=== PATIENT | female | born 1975 | race Caucasian/White ===

== ENCOUNTER 2016-10-02 15:29 | Inpatient (IN) | payer MEDICARE, MEDICAID ==
[~2016-10-02] VITALS: Ht 162.6 cm; Wt 75.3 kg
--- NOTE | 2016-10-02 18:06 | NUR ---
Arrived on Unit Patient arrived on floor from [facility] via BLS in stable condition. VSS. IV site in place. Reported 6/10 flank pain. Denies nausea at this time. MD notified patient arrived. Admit not completed this shift, oncoming shift aware admit not complete. Patient up independent in room. Sister at bedside. Call light and tray table within reach. Will continue to monitor patient hourly
[2016-10-02 18:14] VITALS: BP 155/84; PULSE 77; RESP 18; O2SAT 99
[2016-10-02] MEDS ORDERED: HYDROcodone-APAP 5-325 mg Tablet PO PRN (18:20)
[2016-10-02 18:53] LABS: BASOPHILS % (AUTO) 0.2 % (0-3); EOSINOPHILS % (AUTO) 1.7 % (0-5); MONOCYTES % (AUTO) 9.8 % (4-12); Mean Corpuscular Volume 89.4 fL (81-100); NEUTROPHILS % (AUTO) 62.1 % (40-74); Platelet Count 161 bil/L (150-400)
[2016-10-02] MEDS: 0.9% Sodium Chloride 1,000 ML IV SCH (19:55)
--- NOTE | 2016-10-02 20:09 | PCM.HPMED ---
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 UA was negative for UTI, CT showed left ureteral stone was 6 mm in the distal ureter with hydronephrosis. Patient was empirically treated with antibiotics Levaquin 500iv qd based on white cells count 19,000, despite urine culture remained negative for 24 hours. Patient was given Flomax, unable to pass the stone, remained symptomatic. Therefore, was reached, decided to bring patient to [facility] for further intervention. Pt had lunch, but kept in NPO afterwards for possible intervention tonight. Pt remained HD stable , afebrile per at [place] According d/c summary from [place], pt was on telemetry, didn't have any episode of SVT. BP was well controlled. initial CMP 09/30 showed bunc/r 17/1.4 to 14/1.1(today), procalcitonin<0.05, wbc19 to 11(today) On arrival to [facility], VS stable [id number], HR77, afebrile, 99% on RA, pt was unable to lay down on the bed due to pain, was sitting up on the chair, c/o mild nausea , pt had vomiting four times today, Last time pt ate was lunch. As per Urologist, , he will review the images and schedule for possible intervention tomorrow morning. Review of Systems: Pertinent positives as noted in history of present illness. All other systems were reviewed and are negative Allergies Coded Allergies: Penicillins (Verified Allergy, Severe, 10/02/16) acetaminophen (Verified Allergy, Intermediate, 10/02/16) oxycodone (Verified Allergy, Intermediate, 10/02/16) Home Medications none PMH As describe above Surgical History 2 open heart surgery 3 C-sections no complications from surgery or anesthesia Family History No CAD Social History Hx Alcohol Use: Yes (occasionally) Hx Substance Use: No Hx Tobacco Use: Yes (4 cigarettes for 8yrs) Exam Exam NAD, comfortably laying down on the bed no JVD, MMM, no LAD RRR, nl s1, s2 no mrg CTAB, no w,c S,ND,NT,normoactive BS+, CVAT+ on Left flank warm, no edema, pulses 2/2 Lab and Diagnostics X-Rays, CTs and MRIs CT abd/pelvis w/o contrast 09/30 1.severe left hydronephrosis and perinephric inflammation secondary to a single or two obstructing distal ureteral calculi 2. Small nonobstructing intrarenal calculi bilaterally, and a large 17mm nonobstructing right lower pole major man calicification 3. Cholethiasis 4.Mild cardiomegaly 5.Situs inversus 6. Findings called to ED Assessment & Plan 40yo F w/ history of situs inversus , hx of SVT, HTN initially presented to [facility] 2 days ago with severe left-sided flank pain with nausea and vomiting. acute, active lt flank pain, n,v, POA, CVAT+ on exam, CT from [place] showed Small nonobstructing intrarenal calculi bilaterally, and a large 17mm nonobstructing right lower pole major man calicification -appreciate input, would likely needs intervention given size of stones, persistent sx -keep NPO after MN, -will repeat UA, UCX -zofran for n/v -dilaudid for pain(pt tolerated well at [place]) -would continue Rocephin given concern for pyelonephritis for now, likely to stop tomorrow if pt remains stable, will trends fever curve, procalcitonin PAMELA, postobstructive, already resolved, cr peaked at 1.4 at [place], 0.9 today -avoid renal toxin, i/o strict, chronic, stable history of situs inversus, hx of SVT, will get baseline EKG HTN, continue home meds dispo:Patient will be admitted with inpatient status with expectation of inpatient therapy for more than 2 midnights diet:NPO for now, resume diet after possible procedure today dvt ppx:HSQ Full code Time spent 65 minutes Chi Gerber MD Oct 02, 2016 15:38
[2016-10-02] MEDS ORDERED: SERT100T PO (20:38)
[2016-10-02] MEDS ORDERED: ATEN100T PO (20:38)
[2016-10-02] MEDS: HYDROmorphone 1 mg/mL Inj IVPUSH PRN (21:06)
[2016-10-02] MEDS: Ondansetron 2 mg/mL 2 mL Inj IVPUSH PRN (22:20)
[2016-10-02] MEDS: Famotidine Inj 20 MG in IV Premix 1 EACH IV SCH (23:19)
[2016-10-02] MEDS: Heparin 5,000 Unit/mL Inj SUBQ SCH (23:20)
[2016-10-03 00:04] VITALS: BP 148/80; PULSE 72; RESP 17; O2SAT 97
--- NOTE | 2016-10-03 03:59 | NUR ---
Pain/Nausea/Vomiting Pt reports pain 8/10, Dr Gerber in room and had ordered morphine, Pt rec'd with minimal effects. During MD assessment pain meds discussed as Pt is allergic to many. MD changed to dilaudid. Pt rec'd dilaudid and had + longer lasting pain control. Rates 4/10 which is tolerable. Pt had nausea and then vomited many times. Rec'd zofran, unsuccessful at controlling nausea. Notified MD and rec'd order for lorazepam IV x1 dose. Pt had requested sleep med as well. Tried temazepam and Pt vomited. Lorazepam IV given and had + effects for sleep and N/V control.
[2016-10-03] MEDS: 0.9% Sodium Chloride 1,000 ML IV SCH ×2 (04:20→08:54)
[2016-10-03 06:20] LABS: BASOPHILS % (AUTO) 0.2 % (0-3); EOSINOPHILS % (AUTO) 0.3 % (0-5); MONOCYTES % (AUTO) 7.1 % (4-12); Mean Corpuscular Hemoglobin 30.6 pg (27.0-35.0); Mean Corpuscular Volume 90.2 fL (81-100); NEUTROPHILS % (AUTO) 76.9 % (40-74); Platelet Count 160 bil/L (150-400)
[2016-10-03 06:26] VITALS: BP 142/77; PULSE 70; RESP 17; O2SAT 96
[2016-10-03 06:44] LABS: Magnesium 1.6 mg/dL (1.6-2.6); Phosphorus 4.5 mg/dL (2.5-4.9)
[2016-10-03] MEDS: Heparin 5,000 Unit/mL Inj SUBQ SCH ×2 (08:30→21:15)
[2016-10-03] MEDS: Famotidine Inj 20 MG in IV Premix 1 EACH IV SCH ×2 (08:50→21:14)
[2016-10-03] MEDS: cefTRIAXone Inj 2,000 MG in Dextrose 5% Minibag Plus 50 ML IV SCH (10:06)
--- NOTE | 2016-10-03 11:11 | PCM.PNMED ---
Subjective Date of Service Oct 03, 2016 Subjective pt had severe nausea, not controlled with zofran, required ativan, pt was able to sleep with denied pain, controlled well with dilaudid Exam Vital Signs Vital Sign - Last Date Time Temp Pulse Resp B/P Pulse Ox O2 Delivery O2 Flow Rate FiO2 10/03/16 06:26 36.8 70 17 142/77 96 Room Air Intake and Output 10/02/16 10/02/16 10/03/16 Cumulative From/Thru 15:00 23:00 07:00 10/02/16 18:12 - 10/03/16 06:26 Intake Total 0 ml 901 ml 901 ml Output Total 0 ml 1050 ml 1050 ml Balance 0 ml -149 ml -149 ml Intake Oral 0 ml 150 ml 150 ml IV Total 751 ml 751 ml Output Urine Total 0 ml 850 ml 850 ml Emesis 200 ml 200 ml # Bowel Movements 0 0 Exam NAD, comfortably laying down on the bed no JVD, MMM, no LAD RRR, nl s1, s2 no mrg CTAB, no w,c S,ND,NT,normoactive BS+, CVAT+ on Left flank warm, no edema, pulses 2/2 IVs and Medications Medications Reviewed: Medications were reviewed in detail Lab and Diagnostics Result Diagram: 10/03/16 0525 10/03/16 0525 X-Rays, CTs and MRIs CT abd/pelvis w/o contrast 09/30 1.severe left hydronephrosis and perinephric inflammation secondary to a single or two obstructing distal ureteral calculi 2. Small nonobstructing intrarenal calculi bilaterally, and a large 17mm nonobstructing right lower pole major man calicification 3. Cholethiasis 4.Mild cardiomegaly 5.Situs inversus 6. Findings called to ED Assessment & Plan 40yo F w/ history of situs inversus , hx of SVT, HTN initially presented to [facility] 2 days ago with severe left-sided flank pain with nausea and vomiting. acute, active left flank pain, n,v, POA, CVAT+ on exam, CT from [place] showed Small nonobstructing intrarenal calculi bilaterally, and a large 17mm nonobstructing right lower pole major man calicification -appreciate input, would likely needs intervention given size of stones, persistent sx -keep NPO after MN, -awaits UA, UCX -zofran for n/v -dilaudid for pain(pt tolerated well at [place]) -would continue Rocephin given concern for pyelonephritis for now, likely to stop given low suspicion for sepsis PAMELA, postobstructive, already resolved, cr peaked at 1.4 at [place], 0.9 on admission. -avoid renal toxin, i/o strict, chronic, stable history of situs inversus, hx of SVT, no event on telemetry at [place], will monitor for now HTN, continue home meds dispo:likely 1-2more days until sx resolves diet:NPO for now, resume diet after possible procedure today dvt ppx:HSQ Full code VTE Mechanical Devices: Intermittant Pneumatic CD Time spent 35min Chi Gerber MD Oct 03, 2016 11:11
[2016-10-03 12:24] VITALS: BP 137/85; PULSE 85; RESP 18; O2SAT 98
[2016-10-03] MEDS: HYDROmorphone 1 mg/mL Inj IVPUSH PRN (12:55)
[2016-10-03] MEDS: Ondansetron 2 mg/mL 2 mL Inj IVPUSH PRN ×2 (12:55→23:02)
--- NOTE | 2016-10-03 14:07 | CONS ---
[address] [address] CONSULTATION REPORT PATIENT: SULY FRANKS : 1975 MR#: [id number] ADMIT: 10/02/2016 JOB ID: [id number] CORRECTED REPORT: HISTORY: Suly is a 40-year-old G 4, P 4 female presented with a 3-4 day history of acute onset severe left abdominal groin pain. She presented to [facility] emergency department and it was found that she had a cholelithiasis as well as an obstructing 5 mm left distal ureteral calculus. She failed to progress over a period of 48 hours. I was contacted last evening and I accepted transfer. She had no change in renal pain. ALLERGIES: 1. PENICILLIN. 2. ZOFRAN. MEDICATIONS: 1. Atenolol 100 mg daily. 2. Zoloft 100 mg daily. PAST SURGICAL HISTORY: 1. x3. 2. Normal vaginal delivery x1. 3. History of complete situs inversus. 4. 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 5. Known supraventricular tachycardia. 6. Cholelithiasis. 7. Nephrolithiasis. PHYSICAL EXAMINATION: She is resting comfortably in bed, lying on her right side, reports no current acute distress. Head and neck examination: Atraumatic, normocephalic. No JVD. Chest: Equal, unlabored and clear bilaterally. Heart rate is regular rate. No murmurs. Abdomen is protuberant, soft, and bowel sounds are active. Pelvic not performed. Extremities: No edema, pallor, cyanosis or clubbing. DATA BASE: CT KUB reveals either two or a single, bilobed 5 mm diameter calculus in the left distal ureter and a 1+ cm right renal calculus as well as several gallstones. IMPRESSION: 1. Intractable left renal colic secondary to 5 mm stretching left distal ureteral calculus. 2. Right nephrolithiasis. PLAN/DISCUSSION: 1. Consent and scheduling for cystoscopy, left ureteroscopic laser lithotripsy, possible left stent placement. 2. She will need future probable right ESWL or intrarenal laser lithotripsy. 3. Will need metabolic evaluation. Corrected by MIRTHA 10/10/16 at 11:51am Report type.
[2016-10-03] MEDS ORDERED: Acetaminophen IV 1,000 mg IV SCH (15:00)
--- NOTE | 2016-10-03 16:29 | NUR ---
OR Pt left for OR at 1629, IV SL, report given.
--- NOTE | 2016-10-03 16:32 | NUR ---
Social Work-initial assessment: Data And Assessment: See initial assessment. Pt is a 40 y/o female who was admitted on 10/02/16 for left Distal Uteral stone per H&P. Pt's insurance is [facility] and [facility] and PCP is Sudhir Simmons MD. EMR Reviewed. Pt has no readmit score. SW met with pt to discuss discharge planning, SW role explained and initial assessment complete. Pt is alert and oriented x3. Pt resides at home with family in a single level home with two steps to enter where pt remains independent with basic ADLs. Pt does drive. Pt has no HH or SNF history. Pt has not completed DPOA/ advanced directive and is not interested in information. Pt has no fci care or VA benefits. No discharge needs identified at this time. Pt's family to provide transport home at discharge. SW provided phone number and plan on white board in room. SW will continue to follow. Plan: Anticipated discharge home via POV when medically ready. No discharge needs identified at this time. SW to continue to follow if any needs arise. Ki Mccarty LMSW, ALICE Addendum: 10/03/16 at 1639 by KI MCCARTY SS Amended: Links added.
[2016-10-03] MEDS ORDERED: Lactated Ringer's 1,000 ML IV ONE (16:43)
--- NOTE | 2016-10-03 17:15 | PCM.ANEPRE ---
Anesthesia Pre-Op Review Reason for Review: Evaluation of patient prior to urologic surgery. Anesthesia Recommendations: Delay until Additional Data Obtain Additional Comments 40 year-old female with a history of congenital heart disease s/p ASD and VSD repairs and situs inversus who receives her cardiology care at presents for surgery for a ureteral stone. She endorses < 4METS, takes atenolol, and has a history of SVT. Her last echocardiogram I have access to is from 2007. Given that this procedure is not emergent, I recommend at the very least that she is formally consulted by a roadmaster and that an echocardiogram be done. It may be prudent as well to transfer the patient to the facility where she receives her specialized cardiac care and is known in the facility by cardiologists specializing in congenital heart disease. Rinku Leal MD Oct 03, 2016 17:15
--- NOTE | 2016-10-03 19:38 | NUR ---
Back on floor Pt arrived back on [facility] at 1730, procedure not done, general diet ordered, pt teary on arrival back, pain tolerable, no nausea at this time.
[2016-10-03 19:43] VITALS: BP 149/72; PULSE 80; RESP 18; O2SAT 100
[2016-10-04] MEDS: LORazepam 0.5 mg Tablet PO PRN ×2 (00:41→20:16)
[2016-10-04] MEDS: 0.9% Sodium Chloride 1,000 ML IV SCH ×2 (02:56→13:47)
--- NOTE | 2016-10-04 04:35 | NUR ---
Anxiety/Pain/Nausea Pt anxious to know details of transfer to [facility] for her procedure. Nausea intermittent, pain increasing. Pt refuses dilauded r/t emesis and states allergy to APAP - MD contacted and RX for morphine IV and ativan PO and IV for anxiety. Pt states good relief with this combination. Zofran given 1x so far this shift, no nausea. No chest pain or SOB at this time. in room, patient had shower yesterday evening. Care continues.
[2016-10-04 04:53] VITALS: BP 118/75; PULSE 71; RESP 16; O2SAT 97
[2016-10-04] MEDS: Famotidine Inj 20 MG in IV Premix 1 EACH IV SCH ×2 (08:10→21:26)
[2016-10-04] MEDS: Ondansetron 2 mg/mL 2 mL Inj IVPUSH PRN ×3 (08:12→17:53)
[2016-10-04] MEDS: Heparin 5,000 Unit/mL Inj SUBQ SCH ×2 (08:12→21:25)
[2016-10-04] MEDS: cefTRIAXone Inj 2,000 MG in Dextrose 5% Minibag Plus 50 ML IV SCH (08:58)
--- NOTE | 2016-10-04 11:32 | NUR ---
Transfer Status Spoke with Cecelia from Transfer center. Official accepting MD is Dr. Broderick Campbell, urologist at . States that she is priority for a bed and hopefully it will happen today but due to volume it may be 10/05 or possibly 10/06. Pt and updated with info.
--- NOTE | 2016-10-04 11:32 | PCM.DIMED ---
Discharge Instructions Date of Service Oct 04, 2016 Dates of Hospitalization Oct 02, 2016 at 18:11 Discharge Diagnosis Discharge Diagnosis severe hydronephrosis, with multiple obstructing, non-obstructing nephrolithiasis Medication Instructions You will be managed at another acute care facility Diet No restrictions Activity No restrictions Call your provider Fever or Chills Patient Instructions You were hospitalized with multiple symptoms suggestive or urine infection, found to have multiple kidney stones. Please note that due to more coordinated effort for surgery given your baseline heart condition, you were recommended to transfer to tertiary hospital to get the surgery done. Chi Gerber MD Oct 04, 2016 11:32
--- NOTE | 2016-10-04 11:42 | PCM.DC.MED ---
Discharge Summary Date of Service Oct 04, 2016 Dates of Hospitalization Date of Hospital Admission Oct 02, 2016 at 18:11 Date of Discharge: Oct 04, 2016 Providers: Admitting Physician: Chi Gerber MD Primary Care Physician: Sudhir Simmons MD Attending Physician: Chi Gerber MD Diagnosis at Time of Discharge Diagnosis at Time of Discharge severe hydronephrosis, with multiple obstructing, non-obstructing nephrolithiasis Consultations Urology Procedures XRay, CTs & MRIs CT abd/pelvis w/o contrast 09/30 1.severe left hydronephrosis and perinephric inflammation secondary to a single or two obstructing distal ureteral calculi 2. Small nonobstructing intrarenal calculi bilaterally, and a large 17mm nonobstructing right lower pole major man calicification 3. Cholethiasis 4.Mild cardiomegaly 5.Situs inversus 6. Findings called to ED Brief History HPI obtained on 10/02/2016 40yo F w/ history of situs inversus, hx of SVT, HTN initially presented to [facility] 2 days ago with severe left-sided flank pain with nausea and vomiting. UA was negative for UTI, CT showed left ureteral stone was 6 mm in the distal ureter with hydronephrosis. Patient was empirically treated with antibiotics Levaquin 500iv qd based on white cells count 19,000, despite urine culture remained negative for 24 hours. Patient was given Flomax, unable to pass the stone, remained symptomatic. Therefore, was reached, decided to bring patient to [facility] for further intervention. Pt had lunch, but kept in NPO afterwards for possible intervention tonight. Pt remained HD stable , afebrile per at [facility] According d/c summary from [facility], pt was on telemetry, didn't have any episode of SVT. BP was well controlled. initial CMP 09/30 showed bunc/r 17/1.4 to 14/1.1(today), procalcitonin<0.05, wbc19 to 11(today) On arrival to [facility], VS stable SF674u, HR77, afebrile, 99% on RA, pt was unable to lay down on the bed due to pain, was sitting up on the chair, c/o mild nausea , pt had vomiting four times today, Last time pt ate was lunch. As per Urologist, , he will review the images and schedule for possible intervention tomorrow morning. Hospital Course 40yo F w/ history of situs inversus , hx of SVT, HTN initially presented to [facility] 2 days ago with severe left-sided flank pain with nausea and vomiting. 1.left flank pain, n,v, POA, CVAT+ on exam, CT from [facility] showed severe hydronephrosis, obstructing stones in distal ureter, small nonobstructing intrarenal calculi bilaterally, and a large 17mm nonobstructing right lower pole major man calicification. Patient was seen by Urologist, plan was to proceed cystoscopy, left ureteroscopic laser lithotripsy , possible left stent placement. However, given her baseline heart condition, patient is being transfer to [facility] for preop evaluation, which was recommended by Anesthesia. Patient was continued on Rocephin although pt remained afebrile, no signs of sepsis observed, normal procalcitonin, mildly elevated wbc on labs. Patient's symptoms improved with dilaudid prn, zofran for n/v. patient agreed on above-mentioned plan. 2.PAMELA, postobstructive, already resolved prior to admission, Cr peaked at 1.4 at [facility], 0.9 on admission, remained stable. chronic, stable history of situs inversus, hx of SVT,ASD/VSD repair, patient remained HD stable , remained euvolemic on exam. HTN, continued home meds Exam Vital Signs (Last) Date Time Temp Pulse Resp B/P Pulse Ox O2 Delivery O2 Flow Rate FiO2 10/04/16 04:53 36.5 71 16 118/75 97 Room Air Exam NAD, comfortably laying down on the bed no JVD, MMM, no LAD RRR, nl s1, s2 no mrg CTAB, no w,c S,ND,NT,normoactive BS+. CVAT+on left warm, no edema, pulses 2/2 Test 10/02/16 18:35 10/03/16 05:25 Procalcitonin 0.04ng/mL (0.00-0.08) White Blood Count 11.8th/mm3 (3.8-10.1) Red Blood Count 3.76mil/mm3 (3.90-5.20) Hemoglobin 11.5g/dL (12.0-15.6) Hematocrit 33.9% (35.0-46.0) Mean Corpuscular Volume 90.2fL (81-100) Mean Corpuscular Hemoglobin 30.6pg (27.0-35.0) Mean Corpuscular Hemoglobin Concent 33.9% (32.0-37.0) Red Cell Distribution Width 13.0% (12.3-15.4) Platelet Count 160bil/L (150-400) Neutrophils (%) (Auto) 76.9% (40-74) Lymphocytes (%) (Auto) 15.2% (14-46) Monocytes (%) (Auto) 7.1% (4-12) Eosinophils (%) (Auto) 0.3% (0-5) Basophils (%) (Auto) 0.2% (0-3) Sodium Level 140mEq/L (134-144) Potassium Level 4.2mEq/L (3.5-5.2) Chloride Level 106mEq/L (97-108) Carbon Dioxide Level 21mmol/L (18-29) Blood Urea Nitrogen 13mg/dL (6-20) Creatinine 0.97mg/dL (0.57-1.00) Estimat Glomerular Filtration Rate 92mL/min (>59) Glucose Level 82mg/dL (60-99) Calcium Level 8.9mg/dL (8.5-10.1) Phosphorus Level 4.5mg/dL (2.5-4.9) Magnesium Level 1.6mg/dL (1.6-2.6) Total Bilirubin 1.0mg/dL (0.0-1.2) Aspartate Amino Transf (AST/SGOT) 10U/L (0-50) Alanine Aminotransferase (ALT/SGPT) 6U/L (0-32) Alkaline Phosphatase 68U/L (25-150) Total Protein 5.8g/dL (6.4-8.4) Albumin 3.5g/dL (3.4-5.0) Discharge Medications Discharge Medications Atenolol (Atenolol) 100 Mg Tablet 100 MG PO DAILY (Reported) Sertraline HCl (Zoloft) 100 Mg Tablet 100 MG PO DAILY (Reported) Additional med instructions You will be managed at another acute care facility Followup Plan Disposition: Transfer to tertiary hospital, Discharge Diet: No restrictions Discharge Activity: No restrictions Patient Instructions You were hospitalized with multiple symptoms suggestive or urine infection, found to have multiple kidney stones. Please note that due to more coordinated effort for surgery given your baseline heart condition, you were recommended to transfer to tertiary hospital to get the surgery done. Time spent 65min Chi Gerber MD Oct 04, 2016 11:42
[2016-10-04] MEDS: predniSONE 10 mg Tablet PO SCH ×2 (12:11→18:12)
[2016-10-04] MEDS: Polyethylene Glycol (PEG) 17 Gm Powder PO SCH (13:42)
[2016-10-04 14:32] VITALS: BP 154/83; PULSE 70; RESP 16; O2SAT 97
[2016-10-04 15:05] VITALS: BP 157/88; PULSE 69; RESP 18; O2SAT 96
--- NOTE | 2016-10-04 16:34 | NUR ---
Social Work-readiness for discharge: Data:EMR Reviewed. SW updated that pt will likely transfer to [facility] when bed is available. SW will continue to follow. Assessment:pt to transfer to [facility]. Plan:Pt to transfer to [facility] when bed. SW will continue to follow. MUSTAPHA Engle
--- NOTE | 2016-10-04 18:05 | NUR ---
Pain/nausea Pt stated pain 5/10 in her back, patient has stated she does not need pain meds at this time, have not given anything for pain this shift. pt stated she will call if she needs any. K-pad on back for comfort. Pt complained of nausea and had a small amount of emesis this am. has been treated with Zofran x2 this shift. pt tolerating small amounts of food. Pt informed of plan for transfer, is comfortable waiting here until they have a bed available at .
[2016-10-04 20:15] VITALS: BP 145/83; PULSE 66; RESP 16; O2SAT 92
[2016-10-05] MEDS: Ondansetron 2 mg/mL 2 mL Inj IVPUSH PRN ×4 (00:15→17:23)
[2016-10-05] MEDS: HYDROmorphone 1 mg/mL Inj IVPUSH PRN (00:18)
[2016-10-05] MEDS: 0.9% Sodium Chloride 1,000 ML IV SCH ×3 (00:57→22:28)
[2016-10-05] MEDS: LORazepam 0.5 mg Tablet PO PRN ×2 (03:33→21:35)
--- NOTE | 2016-10-05 04:33 | NUR ---
Pain Patient reports pain consistantly above 6/10, she reports it in her back and flanks as well as pelvic area. Pain managed with morphine and one dose of dilauded. Pt remains anxious and unable to sleep, questioning of plans to go to and type of surgery needed. Urine is being strained for stones, no blood apparent this shift. No chest pain, no SOB. Care continues
[2016-10-05 05:49] VITALS: BP 142/75; PULSE 62; RESP 16; O2SAT 94
--- NOTE | 2016-10-05 07:18 | PCM.PNMED ---
Subjective Date of Service Oct 04, 2016 Subjective patient was clinically stable, still in nausea plan for transfer due to anesthesia given her baseline cardiac condition Exam Vital Signs Vital Sign - Last Date Time Temp Pulse Resp B/P Pulse Ox O2 Delivery O2 Flow Rate FiO2 10/05/16 05:49 36.6 62 16 142/75 94 Room Air Intake and Output 10/04/16 10/04/16 10/05/16 Cumulative From/Thru 15:00 23:00 07:00 10/02/16 18:12 - 10/05/16 05:49 Intake Total 2482 ml 1834 ml 7142 ml Output Total 1250 ml 1400 ml 5910 ml Balance 1232 ml 434 ml 1232 ml Intake Oral 518 ml 800 ml 2268 ml IV Total 1964 ml 1034 ml 4874 ml Output Urine Total 1250 ml 1400 ml 5710 ml Emesis 200 ml # Bowel Movements 0 0 0 Exam NAD, comfortably laying down on the bed no JVD, MMM, no LAD RRR, nl s1, s2 no mrg CTAB, no w,c S,ND,NT,normoactive BS+, CVAT+ on Left flank warm, no edema, pulses 2/2 IVs and Medications Medications Reviewed: Medications were reviewed in detail Lab and Diagnostics Result Diagram: 10/03/16 0525 10/03/16 0525 X-Rays, CTs and MRIs CT abd/pelvis w/o contrast 09/30 1.severe left hydronephrosis and perinephric inflammation secondary to a single or two obstructing distal ureteral calculi 2. Small nonobstructing intrarenal calculi bilaterally, and a large 17mm nonobstructing right lower pole major man calicification 3. Cholethiasis 4.Mild cardiomegaly 5.Situs inversus 6. Findings called to ED Assessment & Plan 40yo F w/ history of situs inversus , hx of SVT, HTN initially presented to [facility] 2 days ago with severe left-sided flank pain with nausea and vomiting. acute, active left flank pain, n,v, POA, CVAT+ on exam, CT from [place] showed Small nonobstructing intrarenal calculi bilaterally, and a large 17mm nonobstructing right lower pole major man calicification -appreciate input, held cystoscopic intervention due to anesthesia requested for transfer, patient was accepted already, transfer process initiated by . -awaits transfer until bed available -zofran for n/v -dilaudid for pain(pt tolerated well at [place]) -would continue Rocephin given concern for pyelonephritis for now, likely to stop given low suspicion for sepsis PAMELA, postobstructive, already resolved, cr peaked at 1.4 at [place], 0.9 on admission. -avoid renal toxin, i/o strict, chronic, stable history of situs inversus, hx of SVT, no event on telemetry at [place], will monitor for now HTN, continue home meds dispo:pending d/c diet:regular diet dvt ppx:HSQ Full code VTE Mechanical Devices: Intermittant Pneumatic CD Time spent 35min Chi Gerber MD Oct 05, 2016 07:17
[2016-10-05] MEDS: predniSONE 10 mg Tablet PO SCH ×2 (08:00→17:23)
[2016-10-05] MEDS: Polyethylene Glycol (PEG) 17 Gm Powder PO SCH (08:30)
[2016-10-05] MEDS: Famotidine Inj 20 MG in IV Premix 1 EACH IV SCH ×2 (09:04→21:29)
[2016-10-05] MEDS: cefTRIAXone Inj 2,000 MG in Dextrose 5% Minibag Plus 50 ML IV SCH (09:59)
--- NOTE | 2016-10-05 10:11 | NUR ---
[facility] bed status Called transfer center and they stated that they had their bed meeting this AM and still no bed available. But next bed meeting is 1400 and we could call back then to check status. Care conts
[2016-10-05] MEDS: Heparin 5,000 Unit/mL Inj SUBQ SCH ×2 (11:53→20:30)
--- NOTE | 2016-10-05 12:29 | NUR ---
Pain/Nausea Per report, pt finally able to get some sleep around 0500 until breakfast arrived. Received 8mg IVP Zofran prior to eating per pt request. Pt waited and attempted to eat later. Later stated she ate about 25% and then had emesis. C/o abd pain but tolerable. Is aware of her pain medication availability - has not requested anything for pain; using [facility]. Has not received PO medications this AM d/t nausea, pt wanting to wait. Care continues.
--- NOTE | 2016-10-05 14:41 | PCM.PNMED ---
Subjective Date of Service Oct 05, 2016 Subjective Patient is in good spirit, able to tolerate diet well Exam Vital Signs Vital Sign - Last Date Time Temp Pulse Resp B/P Pulse Ox O2 Delivery O2 Flow Rate FiO2 10/05/16 05:49 36.6 62 16 142/75 94 Room Air Intake and Output 10/04/16 10/04/16 10/05/16 Cumulative From/Thru 15:00 23:00 07:00 10/02/16 18:12 - 10/05/16 05:49 Intake Total 2482 ml 1834 ml 7142 ml Output Total 1250 ml 1400 ml 5910 ml Balance 1232 ml 434 ml 1232 ml Intake Oral 518 ml 800 ml 2268 ml IV Total 1964 ml 1034 ml 4874 ml Output Urine Total 1250 ml 1400 ml 5710 ml Emesis 200 ml # Bowel Movements 0 0 0 Exam NAD, comfortably laying down on the bed no JVD, MMM, no LAD RRR, nl s1, s2 no mrg CTAB, no w,c S,ND,NT,normoactive BS+. CVAT+ on left side warm, no edema, pulses 2/2 IVs and Medications Medications Reviewed: Medications were reviewed in detail Lab and Diagnostics Result Diagram: 10/03/16 0525 10/03/16 0525 X-Rays, CTs and MRIs CT abd/pelvis w/o contrast 09/30 1.severe left hydronephrosis and perinephric inflammation secondary to a single or two obstructing distal ureteral calculi 2. Small nonobstructing intrarenal calculi bilaterally, and a large 17mm nonobstructing right lower pole major man calicification 3. Cholethiasis 4.Mild cardiomegaly 5.Situs inversus 6. Findings called to ED Assessment & Plan 40yo F w/ history of situs inversus , hx of SVT, HTN initially presented to [facility] 2 days ago with severe left-sided flank pain with nausea and vomiting. acute, active left flank pain, n,v, POA, CVAT+ on exam, CT from [place] showed severe left hydronephrosis and perinephric inflammation secondary to a single or two obstructing distal ureteral calculi. small nonobstructing intrarenal calculi bilaterally, and a large 17mm nonobstructing right lower pole major man calicification -still awaits transfer until bed available, clinically stable -appreciate input, held cystoscopic intervention due to anesthesia requested for transfer, patient was accepted already, transfer process initiated by . -zofran for n/v -dilaudid for pain(pt tolerated well at [place]) -would continue Rocephin given concern for pyelonephritis for now, likely to stop given low suspicion for sepsis PAMELA, postobstructive, already resolved, cr peaked at 1.4 at [place], 0.9 on admission. stable without urologic intervention. -avoid renal toxin, i/o strict, chronic, stable history of situs inversus, hx of SVT, no event on telemetry at [place], will monitor for now HTN, continue home meds dispo:pending d/c diet:regular diet dvt ppx:HSQ Full code VTE Mechanical Devices: Intermittant Pneumatic CD Time spent 35min Chi Gerber MD Oct 05, 2016 14:41
[2016-10-05 16:00] VITALS: BP 133/80; PULSE 68; RESP 15; O2SAT 97
--- NOTE | 2016-10-05 16:06 | PROG NOTE ---
[address] [address] PROGRESS NOTE PATIENT: SULY FRANKS : 1975 MR#: [id number] ADMIT: 10/02/2016 JOB ID: [id number] DATE: 10/05/2016 INTERVAL PROGRESS NOTE: Hospital day #3 for intractable left renal colic, right renal calculus, complete situs inversus and complicated congenital heart defect history. SUBJECTIVE: More or less unchanged. She has waves of nausea. We tried to proceed with transitioning her to oral narcotic analgesics, and she is plagued with intolerance due to nausea and vomiting. She has had a bowel movement. She is passing small gas. Her appetite is decreased but she is drinking and eating small amounts of p.o. The pain in the left flank and back is also relatively unchanged and is episodic. Unfortunately, she has not passed the stone. In the interval, I have spoken with Dr. Oates at the [facility] Department of Cardiology, and he has accepted the patient for transfer, as has Dr. Maximo Alvarez of urology. Current issue seems to be ongoing shortage of available bed. The patient is on the list. I have been assured that we are simply awaiting the opportunity for transfer unless, of course, she passes the calculus in the interval.
[2016-10-05 19:44] VITALS: BP 123/77; PULSE 68; RESP 20; O2SAT 100
[2016-10-06] MEDS: HYDROmorphone 1 mg/mL Inj IVPUSH PRN (00:10)
[2016-10-06] MEDS: Ondansetron 2 mg/mL 2 mL Inj IVPUSH PRN (00:10)
== END 2016-10-06 00:15 | disposition short-term general hospital (02) | DRG 694 ==
LOC: OSC 18:11
PROVIDERS: ADMIT Internal Medicine; ATTEND Internal Medicine
DX: N13.2 Hydronephrosis with renal and ureteral calculous obstruction (principal); Q89.3 Situs inversus; N17.8 Other acute kidney failure; I10 Essential (primary) hypertension